=== PATIENT | female | born 1970 | race Caucasian/White ===

== ENCOUNTER 2017-07-18 12:43 | Emergency (ER) | payer MEDICAID, OTHER ==
[~2017-07-18] VITALS: Ht 170.2 cm; Wt 63.7 kg
[~2017-07-18 12:43] MED LIST: METH-356; OXYC5CAP2 PO; PREG150C PO
[2017-07-18] MEDS ORDERED: METH-356 PO (13:43)
[2017-07-18] MEDS ORDERED: TOPI50TA35 PO (13:43)
[2017-07-18] MEDS ORDERED: OXYC10TA6 PO (13:43)
[2017-07-18 14:30] LABS: HEMATOCRIT 47.1 % (34.6-47.8); HEMOGLOBIN 16.1 g/dL (11.7-16.4)
[2017-07-18 14:43] LABS: DAU SCREEN DISCLAIMER
[2017-07-18 14:43] LABS: ASPARTATE AMINO TRANSFERASE 6 U/L (15-37); BLOOD UREA NITROGEN 8 mg/dL (7-18)
[2017-07-18 15:40] VITALS: BP 101/69
== END 2017-07-18 15:42 | disposition home or self-care (01) ==
LOC: ED 15:36
DX: R63.4 Abnormal weight loss (principal); K59.00 Constipation, unspecified; F64.0 Transsexualism; E78.89 Other lipoprotein metabolism disorders; M54.9 Dorsalgia, unspecified; G89.29 Other chronic pain
CPT/HCPCS: 36415; 74022; 80053; 80307; 81003; 83690; 84439; 84443; 84703; 85025; 93005; 99285; G0479